=== PATIENT | female | born 1945 | race Caucasian/White ===

== ENCOUNTER → 2016-12-16 | Outpatient (CLI) | payer MEDICARE ==
[~2016-12-16] MED LIST: /ESOM40CA OR; /WARF25TA OR; ACET65TA OR; ASPI81TA83 OR; AZOR PO; BUSP10TA PO; BUSPIRONE PO; COUM2.5T17 PO; CRES20TA PO; FOLI1TAB4 PO; GABA600T PO; GABAPOW41 PO; GLIM4TAB PO; GLIMEPIRIDE PO; LOPR1TAB6 PO; MELO7.5T7 PO; METFORMIN PO; METOPROLOL PO; NEXI20CA PO; NICO21DI4 TD; OXYBUTIN PO; PERC5TAB12 PO; PERC5TAB8 OR; PRIM250T8 PO; PRIMPOW10 PO; VITA200015 PO; VITAMIN B 12 PO; VITAMIN D PO; VYTORIN PO; [UNRECOGNIZED DRUG - OTHER] PO; myrbetriq OR
--- NOTE | 2016-12-16 12:28 | REP ---
TRIPLE-PHASE BONE SCAN OF THE KNEES: Following the intravenous administration of 19.9 millicuries technetium 99, MDP, the patient's knees are imaged in the flow phase in the anterior and posterior showing symmetrical blood flow. Immediate blood pole and 2-hours delayed images are performed in the knees in the anterior and both lateral projections. The photopenic area seen in the right knee joints, compatible with metallic prosthesis. There is some minimal increased blood pooling along the margins of the prosthesis. Delayed images snow arthritic uptake at the left patellofemoral joint. There is mild increased delayed activity in the right patella, in the distal end of the right femur and in the proximal end of the right tibia adjacent to the metallic prosthesis. IMPRESSION: Very mild increased blood pooling and very mild increased delayed activity in the distal end of the femur and proximal end of the tibia adjacent to the right knee prosthesis. Signed by David Olivera MD 12/16/2016 04:32 P
== END ==
LOC: M RAD 09:37
PROVIDERS: ATTEND Physician Assistant Surgical
DX: M25.561 Pain in right knee (principal)
CPT/HCPCS: 78315; A9503

== ENCOUNTER → 2017-09-12 | Outpatient (CLI) | payer MEDICARE | LOC: M RAD 12:06 | DX: M51.36 Other intervertebral disc degeneration, lumbar region (principal); M51.26 Other intervertebral disc displacement, lumbar region; M48.061 Spinal stenosis, lumbar region without neurogenic claudication | CPT/HCPCS: 72148 ==

== ENCOUNTER → 2018-08-03 | Outpatient (CLI) | payer MEDICARE ==
[~2018-08-03] MED LIST changes: -/ESOM40CA OR; -/WARF25TA OR; +COUM1TAB18 OR; -CRES20TA PO; +CRES20TA2 PO; +FOLI1TAB11 PO; -FOLI1TAB4 PO; -GABA600T PO; +GABA600T4 PO; +NEXI1CAP3 OR
--- NOTE | 2018-08-03 12:17 | REP ---
DUPLEX CAROTID SONOGRAPHY: HISTORY: Occlusion and stenosis bilateral carotid arteries. FINDINGS: Antegrade flow was observed in both vertebral arteries. RIGHT CAROTID: The right common carotid artery shows mild soft plaquing and intimal thickening. There is moderate to extensive plaquing in the proximal ICA and bulb on the right side on two-dimensional scanning. Stenotic flow velocities are observed in the ICA. VELOCITY CHART RIGHT CAROTID: Right CCA PSV 43 cm/s Right ICA PSV 337 EDV 86 Right ECA/PSV 94 Right ICA/CCA ratio, elevated 8.9 IMPRESSION: Severe, 80-99% category narrowing in the right ICA by Doppler velocity criteria. LEFT CAROTID: The left common carotid artery shows mild soft plaquing and diffuse intimal thickening. There is moderate mixed plaquing in the bulb and proximal ICA on two-dimensional scanning. VELOCITY CHART LEFT CAROTID: Left CCA PSV 49 cm/s Left ICA PSV 110 EDV 24 LEFT ECA/PSV 82 Left ICA/CCA ratio 2.4 IMPRESSION: 16-49% category narrowing in the left ICA by Doppler velocity criteria. Electronically Signed by Denilson Harris MD 08/03/2018 03:44 P
== END ==
LOC: M RAD 09:22
PROVIDERS: ATTEND Surgery Vascular Surgery
DX: I65.23 Occlusion and stenosis of bilateral carotid arteries (principal)

== ENCOUNTER 2018-08-31 09:18 | Inpatient (IN) | payer MEDICARE ==
[2018-08-31] VITALS (10 sets, daily range): BP systolic 120–177; BP diastolic 37–86
[~2018-08-31] VITALS: Ht 168.9 cm; Wt 95.3 kg
[~2018-08-31 09:18] MED LIST changes: +AMLO5TAB6 PO; +DULO1CAP4 PO; +ESTR1MIS PV; +HYDR12CA PO; +JANU100T PO; +LIDO5DIS41 TD; +MELO15TA28 PO; +MEMA1TAB2 PO; +MYRB50TA PO; +OLME40TA PO; +PEG1POW PO; +ROSU20TA5 PO
[2018-08-31] MEDS ORDERED: LIDOCAINE 2% INJ 100 MG/5 ML SDV (FOR ANES.) As Ordered ONE (10:15)
[2018-08-31] MEDS ORDERED: ROCURONIUM BROMIDE 50 MG/5 ML VIAL As Ordered ONE ×2 (10:15→14:04)
[2018-08-31] MEDS ORDERED: dexameTHASONE 4 MG/ML 1ML VIAL (J1100) As Ordered ONE (10:17)
[2018-08-31] MEDS ORDERED: ONDANSETRON 4MG/2ML VIAL (J2405) As Ordered ONE (10:17)
[2018-08-31] MEDS ORDERED: PHENYLEPHRINE INJ 10MG/ML VIAL (J2370) As Ordered ONE (10:17)
[2018-08-31] MEDS ORDERED: MIDAZOLAM INJ 2 MG/2 ML VIAL (J2250) As Ordered ONE (10:20)
[2018-08-31] MEDS ORDERED: fentaNYL 250 MCG/5 ML INJECTION (J3010) As Ordered ONE (10:20)
[2018-08-31] MEDS ORDERED: HEPARIN SOD (PORCINE) 5000 UNITS/ML VIAL As Ordered ONE ×3 (10:23→13:09)
[2018-08-31] MEDS ORDERED: HumaLOG INSULIN (NovoLOG) PER UNIT SC ONE (11:30)
[2018-08-31] MEDS ORDERED: THROMBIN SOLN 20,000 UNITS KIT As Ordered ONE (12:35)
[2018-08-31] MEDS ORDERED: LIDOCAINE 1% SDV INJ 30 ML VIAL As Ordered ONE (12:35)
[2018-08-31] MEDS ORDERED: GLYCOPYRROLATE INJ 0.2 MG/ML 2 ML VIAL As Ordered ONE (13:36)
[2018-08-31] MEDS ORDERED: PHENYLephrine HCL 500 MCG/5 ML (100MCG/ML) SYRINGE (J2370) As Ordered ONE (13:37)
[2018-08-31] MEDS ORDERED: ePHEDrine SULFATE 25 MG/5 ML(5MG/ML) SYRINGE As Ordered ONE (13:37)
[2018-08-31] MEDS ORDERED: SUGAMMADEX SODIUM 500 MG/5 ML VIAL (BRIDION) As Ordered ONE (13:56)
[2018-08-31] MEDS ORDERED: ACETAMINOPHEN 1000MG 100ML IV BTL (OFIRMEV) (J0131 PER 10MG) As Ordered ONE (13:56)
[2018-08-31] MEDS ORDERED: LABETALOL HCL 100 MG/20 ML VIAL As Ordered ONE (14:08)
[2018-08-31] MEDS ORDERED: DESFLURANE 240 ML INHALANT As Ordered ONE (16:03)
[2018-08-31] MEDS ORDERED: oxyCODONE 5MG TAB PO PRN (17:00)
[2018-08-31] MEDS ORDERED: HYDROMORPHONE HCL 0.5 MG/ 0.5 ML SYRINGE (J1170 PER 1) IV PRN (17:00)
[2018-08-31] MEDS ORDERED: ONDANSETRON 4MG/2ML VIAL (J2405) IV PRN (17:00)
[2018-08-31] MEDS ORDERED: LR 1,000 ML IV SCH (17:00)
[2018-08-31] MEDS ORDERED: fentaNYL 100 MCG/2 ML INJECTION (J3010) IV PRN (17:00)
--- NOTE | 2018-08-31 17:09 | ROOPDOC ---
[facility] Report Of Operation Report of Operation DATE OF PROCEDURE: 08/31/18 PREPROCEDURE DIAGNOSES: Right carotid stenosis, asymptomatic. POSTPROCEDURE DIAGNOSES: Same. PROCEDURE: Right carotid endarterectomy with plication of right internal carotid artery. SURGEON: Twyla Elmore MD ANESTHESIA: Gen. anesthesia and local INDICATION FOR PROCEDURE: Ms. rodríguez is a 73-year-old patient with asymptomatic severe right mid internal carotid artery stenosis. After reviewing the imaging with the patient and her , the risks benefits and alternatives to a right carotid endarterectomy were explained to the patient and she was agreeable to proceed. She was extensively counseled in clinic and again preoperatively today. All questions were answered. Informed consent was obtained. PROCEDURE: The patient was brought to the operating room in stable condition. General anesthesia and antibiotics were administered without complication. Her right neck and chest were prepped and draped in sterile fashion. A timeout was performed. An oblique incision was made on the right neck over the anterior border of the sternocleidomastoid. This was carried down through the subcutaneous tissue and platysma with Bovie cautery. Dissection continued along the anterior border of the sternocleidomastoid down to the jugular vein. The facial vein was identified and carefully skeletonized and suture ligated and divided. We continued her dissection down to the external carotid artery which was skeletonized proximally and distally within the incision. Vessel loops were placed around the superior thyroid and external carotid arteries. We continued her dissection onto the common carotid artery which was skeletonized proximally and distally within the incision. A vessel loop was placed as well. 5000 units of heparin was given by anesthesia that allowed to circulate. An additional 1000 units of heparin was given later in the case after an hour had passed. We continued her dissection on the internal carotid artery and found there to be a great deal of heavy calcified near occlusive plaque just distal to the origin and then for an additional 6 cm throughout a very tortuous segment. It took a moment to dissected out the internal carotid artery to place distal to the plaque. Care was taken to preserve the hypoglossal nerve and the ophthalmic artery. It did require a fair bit of retraction on both to expose the distal portion of the artery extracranially. A vessel loop was placed on the internal carotid artery. The vessel loops were secured and the systolic blood pressure was maintained between 140 and 160 mmHg. Initially, I consider doing an eversion endarterectomy, but I was concerned that the artery appeared very thin, in the plaque may be too adherent to the arterial wall to provide enough healthy artery to advance and use as a patch over the carotid bulb. Therefore, I decided the best option would likely be to remove as much plaque as we could through traditional endarterectomy and plicate the artery to eliminate the redundancy of the ICA and eliminate areas of the artery that were deemed to thin after plaque removal. An arteriotomy was made on the common carotid artery with an 11 blade and then carried distally onto the internal carotid artery with a pot scissor. This was a difficult arteriotomy due to heavy calcified plaque well adherent to the arterial wall. Eventually we were able to open the entire area. With great effort we were able to open to an area distal to the plaque. Unfortunately, the plaque was very granular and friable and I did not feel we could place the shunt without possibly disrupting some of the plaque or proximally, thus a quick internal carotid endarterectomy was performed to eliminate the bulk of the plaque. The artery was in fact extremely friable and fragile where the plaque was the heaviest in the midportion. It was extremely difficult to place the shunt and secure a vessel loop due to the very distal nature of our arteriotomy, but we were able to do so after some effort. Once the shunt was placed, we confirmed flow through the shunt with a Doppler. We then continued her endarterectomy. The plaque elevator was used to elevate the plaque at the common carotid artery and the bulb in the right ankle was placed underneath the plaque and it was transected with a pot scissors. We then felt that the plaque out through the bulb and everted the external carotid artery to remove as much plaque from the origin is possible. We then feathered about the plaque through the proximal internal carotid artery. The proximal internal carotid artery appeared relatively healthy. The midportion where the heaviest tortuosity and plaque were located did not appear suitable. The distalmost portion of arteriotomy also appeared suitable. Therefore we plicated the artery bringing the proximal and distal healthy and together with 6-0 Prolene suture. A suture was placed at both sides of the plication and then is separate 6-0 suture was used and a mattress fashion to finish the plication centrally. This remove the tortuosity and gave us the best portions of the artery in preparation for sewing on the patch. Care was taken to remove any further loose and Areli debris. Copious irrigation was performed with heparinized saline. We did note there was a little bit of intermittent calcification in the internal carotid artery distal to arteriotomy, but it did not appear significant and there was no trouble placing the shunt, so this will likely be hemodynamically insignificant. We anastomosed a bovine carotid patch with running 5-0 Prolene suture. Before the final sutures were placed, the shunt was removed first from the internal carotid artery with good back bleeding, then from that common carotid artery which was adequately flushed. We also flushed the external carotid artery and superior thy roid artery and re-irrigated with heparinized saline. Following this, the final sutures were placed in the patch. We then restored flow to the external carotid artery and superior thyroid artery, the common carotid artery, and lastly after 10 beats of the heart the internal carotid artery. We copiously irrigated with normal saline, and Bovie cautery, Surgicel and gentle pressure were used for hemostasis. A 10 mm ANKUR drain was placed and secured at the right neck with a nylon suture. The incision was irrigated again with saline, and the platysmal layer was reapproximated with a running Vicryl suture. The dermal layer was approximated with interrupted dermal Vicryl sutures. The skin was closed with a running subcuticular Monocryl suture. Mastisol and Steri-Strips were used to dress the incision. A drain sponge was placed around the drain and the drain was placed to bulb suction. Our first sponge instrument and needle count was correct, but the last count was missing 1 6-0 Prolene BV-1 needle. The help desk technician feels it fell off of her tray while she was getting another suture ready. An extensive attempt to find the needle was performed by the circulating nurse and the help desk technician, but they were not able to find it. Since our initial count was correct and the needle was lost after we had started closing, and since this needle is smaller than 10mm and could not be seen on x-ray, an x-ray was not deemed unnecessary per hospital policy. The patient was allowed to awaken from anesthesia and before we left the operating room, she was able to open her eyes, say her name, move all 4 extremities equally, and follow commands. She was taken to PACU in stable condition. ESTIMATED BLOOD LOSS: Approximately 200 mL. COMPLICATIONS: None. DRAINS: Right neck ANKUR. SPECIMENS: Plaque right carotid artery sent for pathology. TWYLA ELMORE MD Aug 31, 2018 17:09
[2018-08-31] MEDS ORDERED: CHLORASEPTIC SPRAY MT PRN (17:15)
[2018-08-31] MEDS ORDERED: GLUCAGON FOR INJ 1 MG VIAL (J1610) SC PRN (18:45)
[2018-08-31] MEDS ORDERED: SLF 3 ML SYR IV PRN (18:45)
[2018-08-31] MEDS ORDERED: DEXTROSE 50% 50 ML SYRINGE IV PRN (18:45)
[2018-08-31] MEDS ORDERED: GLUCOSE 4 GM CHEW TABLET PO PRN (18:45)
[2018-08-31] MEDS: HumaLOG INSULIN (NovoLOG) PER UNIT SC SCH (18:48)
[2018-08-31] MEDS: PERCOCET 5MG/325MG TAB PO PRN (18:49)
[2018-08-31] MEDS ORDERED: OLME1TAB15 PO ×2 (19:42→20:14)
[2018-08-31] MEDS ORDERED: MIRALAX *UNIT DOSE* 17GM PACKET PO PRN (19:45)
[2018-08-31] MEDS ORDERED: BUSP5TAB81 PO (20:14)
[2018-08-31] MEDS ORDERED: NS 500 ML IV SCH (20:42)
[2018-08-31] MEDS: GABAPENTIN 300 MG CAP PO SCH (20:57)
[2018-08-31] MEDS: PRIMIDONE 250 MG TAB PO SCH (20:57)
[2018-08-31] MEDS: busPIRone 5 MG TAB PO SCH (20:57)
[2018-08-31] MEDS: MEMANTINE 5MG TABLET (NAMENDA) PO SCH (20:57)
[2018-08-31] MEDS: ACETAMINOPHEN TAB 650MG DOSE (2X325MG) PO PRN (20:58)
[2018-08-31] MEDS ORDERED: METOPROLOL TART 50 MG TAB PO SCH (21:00)
[2018-08-31] MEDS: **NOTE PATIENT COMMENT** MISC XX SCH (21:00)
--- NOTE | 2018-08-31 21:01 | CR.PDOC ---
General Date of Consultation: Aug 31, 2018 Consultation REASON FOR CONSULTATION/CHIEF COMPLAINT: post op management of comorbidities HISTORY OF PRESENT ILLNESS: 73f with hx of DM, HTN, HLD, neuropathy, presented for elective carotid endarterectomy for severe asymptomatic carotid stenosis. Pt reports she has felt well except for neck pain the past few months which prompted the carotid US. Pt had the procedure today with no complications except transient hypotension resolving spontaneously. Now feels well except some incisional site pain. ALLERGIES: Please see below. HOME MEDICATIONS: Please see below. PAST MEDICAL HISTORY: 1. diabetes. 2. htn 3. HLD PAST SURGICAL HISTORY: 1.shoulder surgery 2.hysterectomy 3. carpal tunnel FAMILY HISTORY: noncontributory SOCIAL HISTORY: Tobacco use:former ETOH: denies Illicit drug use: denies REVIEW OF SYSTEMS: A full ROS was performed and negative except as documented in HPI PHYSICAL EXAMINATION: VITAL SIGNS: Please see below. GENERAL APPEARANCE: calm, no apparent distress HEENT: Normocephalic, atraumatic, perrl, eomi RESPIRATORY: unlabored, cta bilaterally with good air movement CARDIOVASCULAR: RRR, S1S2, no mrg ABDOMEN: soft nontender, nondistended EXTREMITIES: good rom, no edema NEUROLOGICAL: no focal deficits PSYCHIATRIC: A+Ox3, nl mood and affect LABORATORY DATA: Please see below. ASSESSMENT/PLAN: 73f post op carotid endarterectomy htn sbp goal 90-140 continue home regimen of benicar, hctz, norvasc, and metoprolol HLD continue crestor DM diabetic diet fingersticks sliding scale hold januvia and glimepiride post op pain per vascular Vital Signs/I&O Vital Signs Date Time Temp Pulse Resp B/P (MAP) Pulse Ox O2 Delivery O2 Flow Rate FiO2 08/31/18 19:19 21 2.0 08/31/18 18:49 98 08/31/18 18:45 69 137/49 (78) 08/31/18 18:10 98.0 Laboratory Data Labs 24H Laboratory Tests 2 08/31/18 10:26: Bedside Glucose (Misc Panel) 251H 08/31/18 12:12: Bedside Glucose (Misc Panel) 195H 08/31/18 18:45: Bedside Glucose (Misc Panel) 199H Allergies Coded Allergies: ampicillin (Verified Adverse Reaction, Intermediate, diarrhea, 08/18/18) TAPE (Verified Adverse Reaction, Mild, BLISTERS, 08/18/18) Home Medications Scheduled Amlodipine Besylate (Amlodipine Besylate) 5 Mg Tablet, 5 MG PO DAILY, (Reported) Buspirone HCl (Buspirone HCl) 5 Mg Tablet, 5 MG PO TID, (Reported) Cholecalciferol (Vitamin D3) (Vitamin D3) 2,000 Unit Tab, 2,000 UNIT PO DAILY, (Reported) Duloxetine Hcl (Duloxetine HCl) 20 Mg Capsule.dr, 20 MG PO DAILY, (Reported) AT 1200 Esomeprazole Magnesium (Nexium) 20 Mg Cap, 40 MG PO QHS, (Reported) Estradiol (Estring) 2 Mg Vag.ring, 2 MG PV Q3M, (Reported) Gabapentin (Gabapentin) 600 Mg Tab, 600 MG PO TID, (Reported) Glimepiride (Glimepiride) 4 Mg Tab, 4 MG PO BID, (Reported) Hydrochlorothiazide (Hydrochlorothiazide) 12.5 Mg Capsule, 12.5 MG PO DAILY, (Reported) Lidocaine (Lidoderm) 5% Adh..patch, 1 PATCH TD DAILY, (Reported) APPLIES TO LOWER BACK Meloxicam (Meloxicam) 15 Mg Tablet, 7.5 MG PO DAILY, (Reported) Memantine HCl (Memantine HCl) 10 Mg Tablet, 10 MG PO BID, (Reported) Metoprolol Tartrate (Lopressor) 50 Mg Tab, 50 MG PO DAILY, (Reported) Mirabegron (Myrbetriq) 50 Mg Tab.er.24h, 50 MG PO DAILY, (Reported) Olmesartan/Hydrochlorothiazide (Olmesartan-Hctz 40-25 mg Tab) 1 Each Tablet, 1 TAB PO DAILY, (Reported) Primidone (Primidone) 250 Mg Tablet, 250 MG PO BID, (Reported) Rosuvastatin Calcium (Rosuvastatin Calcium) 20 Mg Tablet, 20 MG PO Q2D, (Reported) IN THE EVENING Sitagliptin Phosphate (Januvia) 100 Mg Tablet, 100 MG PO DAILY, (Reported) AT 1200 Scheduled PRN Polyethylene Glycol 3350 (Polyethylene Glycol 3350) 17 Gm Powd.pack, 17 GM PO DAILY PRN for CONSTIPATION, (Reported) ÁLVARO HOPKINS MD Aug 31, 2018 21:01
[2018-08-31] MEDS ORDERED: **hydrALAZINE HCL** 25 MG TAB PO ONE (22:15)
[2018-08-31] MEDS: SLF 3 ML SYR IV SCH (22:29)
[2018-09-01] VITALS (21 sets, daily range): BP systolic 102–235; BP diastolic 41–76
[2018-09-01] MEDS: HumaLOG INSULIN (NovoLOG) PER UNIT SC SCH ×5 (01:32→20:28)
[2018-09-01] MEDS: hydrALAZINE INJ 20 MG/ML VIAL IV PRN ×4 (02:18→16:15)
[2018-09-01] MEDS: PERCOCET 5MG/325MG TAB PO PRN ×2 (02:55→16:17)
[2018-09-01] MEDS: SLF 3 ML SYR IV SCH ×3 (06:23→21:36)
[2018-09-01 06:34] LABS: BASO % 0.6 % (0.0-1.0); EOS # 0.1 10^3/uL (0.0-0.50); EOS % 1.1 % (0.0-3.0); HEMATOCRIT 32.7 % (36.0-47.0); HEMOGLOBIN 10.7 g/dl (12.0-15.5); LYMPH # 2.1 10^3/uL (1.5-4.5); LYMPH % 29.6 % (24.0-44.0); MEAN CORPUSCULAR HEMOGLOBIN 29.3 pg (27.0-33.0); MEAN CORPUSCULAR HGB CONC 32.7 g/dl (32.0-36.5); MEAN CORPUSCULAR VOLUME 89.6 fl (80.0-96.0); MONO # 0.5 10^3/uL (0.0-0.8); MONO % 7.1 % (0.0-5.0); NEUTROPHILS # 4.3 10^3/uL (1.8-7.7); PLATELET COUNT, AUTOMATED 121 10^3/uL (150-450); RED BLOOD COUNT 3.65 10^6/uL (4.00-5.40); WHITE BLOOD COUNT 7.1 10^3/uL (4.0-10.0)
[2018-09-01 07:10] LABS: ALBUMIN 3.3 GM/DL (3.2-5.2); ALT/SGPT 32 U/L (12-78); BILIRUBIN,TOTAL 0.2 MG/DL (0.2-1.0); BLOOD UREA NITROGEN 9 MG/DL (7-18); CALCIUM LEVEL 8.8 MG/DL (8.8-10.2); CARBON DIOXIDE LEVEL 32 MEQ/L (21-32); CHLORIDE LEVEL 108 MEQ/L (98-107); CREATININE FOR GFR 0.66 MG/DL (0.55-1.30); GLOMERULAR FILTRATION RATE > 60.0 (>39); GLUCOSE, FASTING 210 MG/DL (70-100); POTASSIUM SERUM 3.6 MEQ/L (3.5-5.1); SODIUM LEVEL 132 MEQ/L (136-145); TOTAL PROTEIN 6.5 GM/DL (6.4-8.2)
[2018-09-01] MEDS: ACETAMINOPHEN TAB 650MG DOSE (2X325MG) PO PRN ×2 (07:55→15:18)
[2018-09-01] MEDS: PANTOPRAZOLE 40MG TAB (PROTONIX) PO SCH (07:55)
[2018-09-01] MEDS: LIDOCAINE 5% (LIDODERM) PATCH TD SCH (07:56)
[2018-09-01] MEDS: VITAMIN D 1,000 INTERNATIONAL UNITS TABLET PO SCH (07:57)
[2018-09-01] MEDS: OLMESARTAN MEDOXOMIL 20 MG TAB (BENICAR) PO SCH (07:57)
[2018-09-01] MEDS: GABAPENTIN 300 MG CAP PO SCH ×3 (07:58→21:36)
[2018-09-01] MEDS: MELOXICAM (MOBIC) 7.5 MG TAB PO SCH (07:58)
[2018-09-01] MEDS: busPIRone 5 MG TAB PO SCH ×3 (07:58→21:35)
[2018-09-01] MEDS: DULoxetine 20 MG CAP (CYMBALTA) PO SCH (07:58)
[2018-09-01] MEDS: MEMANTINE 5MG TABLET (NAMENDA) PO SCH ×2 (07:58→21:36)
[2018-09-01] MEDS: METOPROLOL TART 50 MG TAB PO SCH (07:59)
[2018-09-01] MEDS: PRIMIDONE 250 MG TAB PO SCH ×2 (08:00→21:35)
--- NOTE | 2018-09-01 08:07 | IPNPDOC ---
Text Note Date of Service The patient was seen on 09/01/18. NOTE Subjective: Patient seen and examined at bedside. No new medical complaints this morning. Complains of some right neck pain. Objective: VITAL SIGNS: Please see below. GENERAL: lying comfortably in bed, NAD HEENT: Normocephalic, atraumatic, perrl, eomi NECK: right neck bandages in place RESPIRATORY: unlabored, cta bilaterally with good air movement CARDIOVASCULAR: RRR, S1S2, systolic murmur ABDOMEN: soft NT, ND, +BS EXTREMITIES: no edema NEUROLOGICAL: no gross focal deficits , AAOx3 ASSESSMENT/PLAN: 73f POD #1 right CEA, consulted for management medical co-morbidities #HTN - sbp goal 90-140 - continue home regimen of benicar, hctz, norvasc, and metoprolol - hydralazine PRN - further direction as per primary team #HLD continue crestor #DM - diabetic diet - ISS - hold januvia and glimepiride #post op pain - as per primary team VS,Dalila, I+O VS, Juanitae, I+O Laboratory Tests 09/01/18 06:20 Red Blood Count 3.65 L, Mean Corpuscular Volume 89.6, Mean Corpuscular Hemoglobin 29.3, Mean Corpuscular Hemoglobin Concent 32.7, Red Cell Distribution Width 13.7, Neutrophils (%) (Auto) 61.0, Lymphocytes (%) (Auto) 29.6, Monocytes (%) (Auto) 7.1 H, Eosinophils (%) (Auto) 1.1, Basophils (%) (Auto) 0.6, Neutrophils # (Auto) 4.3, Lymphocytes # (Auto) 2.1, Monocytes # (Auto) 0.5, Eosinophils # (Auto) 0.1, Basophils # (Auto) 0.0, Calcium Level 8.8, Aspartate Amino Transf (AST/SGOT) 23, Alanine Aminotransferase (ALT/SGPT) 32, Alkaline Phosphatase 73, Total Bilirubin 0.2, Total Protein 6.5, Albumin 3.3 Vital Signs Date Time Temp Pulse Resp B/P (MAP) Pulse Ox O2 Delivery O2 Flow Rate FiO2 09/01/18 07:57 144/66 09/01/18 06:55 68 92 09/01/18 04:00 98.1 20 09/01/18 03:00 1.0 I&O- Last 24 Hours up to 6 AM 09/01/18 05:59 Intake Total 2040 ml Output Total 1545 ml Balance 495 ml CHLOE MONTANO MD Sep 01, 2018 08:07
--- NOTE | 2018-09-01 08:13 | IPNPDOC ---
Date Seen The patient was seen on 09/01/18. Progress Note Patient seen and examined postoperative day one status post carotid endarterectomy in the right. She's doing well overnight. She's been out of bed with assist. She has had some hypertension overnight. Her noninvasive blood pressure is not correlating with arterial line very well. Both are high however and she required a dose of hydralazine this morning and I've asked the nurses to give her her morning blood pressure pills a bit early to see if this will help. We will continue our arterial line until her hypertension is controlled. She is swallowing without difficulty. Her pain is minimal. On exam, her right neck incision is clean dry and intact with Steri-Strips. Drain output is minimal and her ANKUR drain was removed and dressed with Steri- Strips and dry gauze. She is alert and oriented 3. Cranial nerves are grossly intact but she does have a mild deviation of her tongue to the right due to a very distal dissection of her internal carotid artery and significant distal plaque. We expect this and it should resolve over the next month. He is not affecting her mastication or speech. Moving all extremities equally, and sensation, motor, and strength all appear to be equal in all 4 extremities. Plan: The patient will require a new prescription for Plavix at discharge for 30 days. Out of bed with assist and ambulate. Monitor hypertension and continue arterial line until hypertension is resolved. Regular diet. Discharge instructions: No driving for 1 week. Okay to shower. If possible, use a baby shampoo or mild shampoo until incision is completely healed. Avoid heat styling until incision completely healed. Try to leave Steri-Strips intact for 1 week. Okay to remove gauze dressing from drain site tomorrow. No strenuous exercise or heavy lifting for 1 week. Okay to ambulate and light activity as tolerated. VS, I&O, 24H, Fishbone Vital Signs/I&O Vital Signs Date Time Temp Pulse Resp B/P (MAP) Pulse Ox O2 Delivery O2 Flow Rate FiO2 09/01/18 07:57 144/66 09/01/18 06:55 68 92 09/01/18 04:00 98.1 20 09/01/18 03:00 1.0 I&O- Last 24 Hours up to 6 AM 09/01/18 06:00 Intake Total 2280 ml Output Total 1960 ml Balance 320 ml Laboratory Data 24H LABS Laboratory Tests 2 08/31/18 10:26: Bedside Glucose (Misc Panel) 251H 08/31/18 12:12: Bedside Glucose (Misc Panel) 195H 08/31/18 18:45: Bedside Glucose (Misc Panel) 199H 08/31/18 22:28: Bedside Glucose (Misc Panel) 254H 09/01/18 06:20: Immature Granulocyte % (Auto) 0.6, White Blood Count 7.1, Red Blood Count 3.65L, Hemoglobin 10.7L, Hematocrit 32.7L, Mean Corpuscular Volume 89.6, Mean Corpuscular Hemoglobin 29.3, Mean Corpuscular Hemoglobin Concent 32.7, Red Cell Distribution Width 13.7, Platelet Count 121L, Neutrophils (%) (Auto) 61.0, Lymphocytes (%) (Auto) 29.6, Monocytes (%) (Auto) 7.1H, Eosinophils (%) (Auto) 1.1, Basophils (%) (Auto) 0.6, Neutrophils # (Auto) 4.3, Lymphocytes # (Auto) 2.1, Monocytes # (Auto) 0.5, Eosinophils # (Auto) 0.1, Basophils # (Auto) 0.0, Nucleated Red Blood Cells % (auto) 0.0, Anion Gap -8L, Glomerular Filtration Rate > 60.0, Blood Urea Nitrogen 9, Creatinine 0.66, Sodium Level 132L, Potassium Level 3.6, Chloride Level 108H, Carbon Dioxide Level 32, Calcium Level 8.8, Aspartate Amino Transf (AST/SGOT) 23, Alanine Aminotransferase (ALT/SGPT) 32, Alkaline Phosphatase 73, Total Bilirubin 0.2, Total Protein 6.5, Albumin 3.3, Albumin/Globulin Ratio 1.03 CBC/BMP Laboratory Tests 09/01/18 06:20 Red Blood Count 3.65 L, Mean Corpuscular Volume 89.6, Mean Corpuscular Hemoglobin 29.3, Mean Corpuscular Hemoglobin Concent 32.7, Red Cell Distribution Width 13.7, Neutrophils (%) (Auto) 61.0, Lymphocytes (%) (Auto) 29.6, Monocytes (%) (Auto) 7.1 H, Eosinophils (%) (Auto) 1.1, Basophils (%) (Auto) 0.6, Neutrophils # (Auto) 4.3, Lymphocytes # (Auto) 2.1, Monocytes # (Auto) 0.5, Eosinophils # (Auto) 0.1, Basophils # (Auto) 0.0, Calcium Level 8.8, Aspartate Amino Transf (AST/SGOT) 23, Alanine Aminotransferase (ALT/SGPT) 32, Alkaline Phosphatase 73, Total Bilirubin 0.2, Total Protein 6.5, Albumin 3.3 TWYLA METZ MD Sep 01, 2018 08:13
[2018-09-01 08:30] LABS: MAGNESIUM LEVEL 1.6 MG/DL (1.8-2.4)
[2018-09-01] MEDS ORDERED: amLODIPine 5 MG TAB PO SCH (09:00)
[2018-09-01] MEDS ORDERED: hydroCHLOROthiazide 12.5 MG CAPSULE PO SCH (09:00)
[2018-09-01] MEDS ORDERED: METOPROLOL TART 50 MG TAB PO SCH (09:00)
[2018-09-01] MEDS ORDERED: MAG SULF 1GM/100ML (MAG RUN) 1 GM in APPROPRIATE DILUENT 1 EA IV ONE (11:00)
[2018-09-01] MEDS ORDERED: hydrALAZINE INJ 20 MG/ML VIAL IV ONE (15:00)
--- NOTE | 2018-09-01 16:47 | REP ---
Chest x-ray: Sitting portable AP view. History: Fever. Comparison study: August 25, 2015. Findings: EKG monitoring electrodes overlie the chest. The lungs are symmetrically aerated and free of infiltrate. Pleural angles are sharp. Heart is not enlarged. The aorta is calcific. There are mild degenerative changes in the shoulders. Impression: No acute disease. No infiltrate seen. Electronically Signed by Denilson Harris MD 09/01/2018 04:39 P
[2018-09-01] MEDS ORDERED: ROSUVASTATIN 10 MG TAB (CRESTOR) PO SCH (21:00)
[2018-09-01] MEDS: **NOTE PATIENT COMMENT** MISC XX SCH (21:36)
[2018-09-02] VITALS (11 sets, daily range): BP systolic 108–179; BP diastolic 51–77
[2018-09-02 04:56] LABS: BASO # 0.1 10^3/uL (0.0-0.2); BASO % 0.7 % (0.0-1.0); EOS # 0.1 10^3/uL (0.0-0.50); EOS % 0.9 % (0.0-3.0); HEMATOCRIT 31.6 % (36.0-47.0); HEMOGLOBIN 10.2 g/dl (12.0-15.5); LYMPH # 3.3 10^3/uL (1.5-4.5); LYMPH % 37.9 % (24.0-44.0); MEAN CORPUSCULAR HEMOGLOBIN 29.2 pg (27.0-33.0); MEAN CORPUSCULAR HGB CONC 32.3 g/dl (32.0-36.5); MEAN CORPUSCULAR VOLUME 90.5 fl (80.0-96.0); MONO # 0.6 10^3/uL (0.0-0.8); MONO % 6.7 % (0.0-5.0); NEUTROPHILS # 4.6 10^3/uL (1.8-7.7); NEUTROPHILS % 53.5 % (36.0-66.0); PLATELET COUNT, AUTOMATED 141 10^3/uL (150-450); RED BLOOD COUNT 3.49 10^6/uL (4.00-5.40); WHITE BLOOD COUNT 8.6 10^3/uL (4.0-10.0)
[2018-09-02] MEDS: SLF 3 ML SYR IV SCH (05:08)
[2018-09-02 05:09] LABS: ALBUMIN 3.2 GM/DL (3.2-5.2); ALT/SGPT 25 U/L (12-78); BILIRUBIN,TOTAL 0.3 MG/DL (0.2-1.0); BLOOD UREA NITROGEN 15 MG/DL (7-18); CALCIUM LEVEL 8.6 MG/DL (8.8-10.2); CARBON DIOXIDE LEVEL 33 MEQ/L (21-32); CHLORIDE LEVEL 100 MEQ/L (98-107); CREATININE FOR GFR 0.71 MG/DL (0.55-1.30); GLOMERULAR FILTRATION RATE > 60.0 (>39); GLUCOSE, FASTING 190 MG/DL (70-100); POTASSIUM SERUM 3.7 MEQ/L (3.5-5.1); SODIUM LEVEL 138 MEQ/L (136-145); TOTAL PROTEIN 6.5 GM/DL (6.4-8.2)
[2018-09-02] MEDS: HumaLOG INSULIN (NovoLOG) PER UNIT SC SCH (08:07)
[2018-09-02] MEDS ORDERED: hydroCHLOROthiazide 25 MG TAB PO SCH (09:00)
[2018-09-02] MEDS ORDERED: amLODIPine 10 MG TAB PO SCH (09:00)
[2018-09-02] MEDS: MEMANTINE 5MG TABLET (NAMENDA) PO SCH (09:06)
[2018-09-02] MEDS: DULoxetine 20 MG CAP (CYMBALTA) PO SCH (09:06)
[2018-09-02] MEDS: busPIRone 5 MG TAB PO SCH (09:07)
[2018-09-02] MEDS: OLMESARTAN MEDOXOMIL 20 MG TAB (BENICAR) PO SCH (09:07)
[2018-09-02] MEDS: PANTOPRAZOLE 40MG TAB (PROTONIX) PO SCH (09:08)
[2018-09-02] MEDS: VITAMIN D 1,000 INTERNATIONAL UNITS TABLET PO SCH (09:08)
[2018-09-02] MEDS: MELOXICAM (MOBIC) 7.5 MG TAB PO SCH (09:08)
[2018-09-02] MEDS: PRIMIDONE 250 MG TAB PO SCH (09:08)
[2018-09-02] MEDS: GABAPENTIN 300 MG CAP PO SCH (09:08)
[2018-09-02] MEDS: METOPROLOL TART 50 MG TAB PO SCH (09:09)
[2018-09-02] MEDS: LIDOCAINE 5% (LIDODERM) PATCH TD SCH (09:09)
--- NOTE | 2018-09-02 09:22 | IPNPDOC ---
Date Seen The patient was seen on 09/02/18. Progress Note Patient seen and examined postoperative day 2 status post right carotid endarterectomy. She's doing well. She's been out of bed without difficulty. her hypertension is controlled with medication. She is swallowing and eating without difficulty. Her pain is minimal. On exam, her right neck incision is clean dry and intact with Steri-Strips. She is alert and oriented 3. Cranial nerves are grossly intact but she does have a mild deviation of her tongue to the right due to a very distal dissection of her internal carotid artery and significant distal plaque. We expect this and it should resolve over the next month. He is not affecting her mastication or speech. Moving all extremities equally, and sensation, motor, and strength all appear to be equal in all 4 extremities. Plan: The patient will require a new prescription for Plavix at discharge for 30 days. Out of bed with assist and ambulate. Monitor hypertension and continue arterial line until hypertension is resolved. Regular diet. Discharge instructions: No driving for 1 week. Okay to shower. If possible, use a baby shampoo or mild shampoo until incision is completely healed. Avoid heat styling until incision completely healed. Try to leave Steri-Strips intact for 1 week. Okay to remove gauze dressing from drain site tomorrow. No strenuous exercise or heavy lifting for 1 week. Okay to ambulate and light activity as tolerated. Continue plavix for 1 month and then ok to discontinue. VS, I&O, 24H, Fishbone Vital Signs/I&O Vital Signs Date Time Temp Pulse Resp B/P (MAP) Pulse Ox O2 Delivery O2 Flow Rate FiO2 09/02/18 09:07 179/77 09/02/18 07:16 76 09/02/18 06:00 1.0 09/02/18 05:00 97 09/02/18 04:00 98.9 21 I&O- Last 24 Hours up to 6 AM 09/02/18 06:00 Intake Total 1605 ml Output Total 2650 ml Balance -1045 ml Laboratory Data 24H LABS Laboratory Tests 2 09/01/18 11:51: Bedside Glucose (Misc Panel) 233H 09/01/18 19:20: Bedside Glucose (Misc Panel) 207H 09/02/18 04:30: Immature Granulocyte % (Auto) 0.3, White Blood Count 8.6, Red Blood Count 3.49L, Hemoglobin 10.2L, Hematocrit 31.6L, Mean Corpuscular Volume 90.5, Mean Corpuscular Hemoglobin 29.2, Mean Corpuscular Hemoglobin Concent 32.3, Red Cell Distribution Width 14.3, Platelet Count 141L, Neutrophils (%) (Auto) 53.5, Lymphocytes (%) (Auto) 37.9, Monocytes (%) (Auto) 6.7H, Eosinophils (%) (Auto) 0.9, Basophils (%) (Auto) 0.7, Neutrophils # (Auto) 4.6, Lymphocytes # (Auto) 3.3, Monocytes # (Auto) 0.6, Eosinophils # (Auto) 0.1, Basophils # (Auto) 0.1, Nucleated Red Blood Cells % (auto) 0.0, Anion Gap 5L, Glomerular Filtration Rate > 60.0, Blood Urea Nitrogen 15#, Creatinine 0.71, Sodium Level 138, Potassium Level 3.7, Chloride Level 100, Carbon Dioxide Level 33H, Calcium Level 8.6L, Aspartate Amino Transf (AST/SGOT) 17, Alanine Aminotransferase (ALT/SGPT) 25, Alkaline Phosphatase 67, Total Bilirubin 0.3, Total Protein 6.5, Albumin 3.2, Albumin/Globulin Ratio 0.97L CBC/BMP Laboratory Tests 09/02/18 04:30 Red Blood Count 3.49 L, Mean Corpuscular Volume 90.5, Mean Corpuscular Hemoglobin 29.2, Mean Corpuscular Hemoglobin Concent 32.3, Red Cell Distribution Width 14.3, Neutrophils (%) (Auto) 53.5, Lymphocytes (%) (Auto) 37.9, Monocytes (%) (Auto) 6.7 H, Eosinophils (%) (Auto) 0.9, Basophils (%) (Auto) 0.7, Neutrophils # (Auto) 4.6, Lymphocytes # (Auto) 3.3, Monocytes # (Auto) 0.6, Eosinophils # (Auto) 0.1, Basophils # (Auto) 0.1, Calcium Level 8.6 L, Aspartate Amino Transf (AST/SGOT) 17, Alanine Aminotransferase (ALT/SGPT) 25, Alkaline Phosphatase 67, Total Bilirubin 0.3, Total Protein 6.5, Albumin 3.2 Microbiology Microbiology 09/01/18 Blood Culture, Received Pending 09/01/18 Blood Culture, Received Pending TWYLA METZ MD Sep 02, 2018 09:22
[2018-09-02] MEDS ORDERED: CLOP75TA2 PO (09:32)
--- NOTE | 2018-09-02 09:45 | DS.PDOC ---
Discharge Summary General Date of Admission Aug 31, 2018 at 09:18 Date of Discharge 09/02/18 Primary Care Physician: A Attending Physician: TWYLA ELMORE MD Discharge Summary PROCEDURES PERFORMED DURING STAY: 09/01/18 Right carotid endarterectomy ADMITTING DIAGNOSES: 1. Right carotid stenosis, asymptomatic 2. Diabetes 3. Hypertension DISCHARGE DIAGNOSES: 1. Right carotid stenosis, asymptomatic 2. Diabetes 3. Hypertension COMPLICATIONS/CHIEF COMPLAINT: Right carotid stenosis. HISTORY OF PRESENT ILLNESS: Ms Contreras is a very pleasant 73 year old patient with right carotid stenosis, asymptomatic. She was admitted for a right carotid endarterectomy after appropriate preoperative clearance. HOSPITAL COURSE: The patient was admitted following her surgery (please see operative report for further details) to the ICU for blood pressure monitoring. She did have some hypertension postop that was managed with hydralazine IV and her home medications. She remained stable from a neurologic standpoint throughout her stay. She was eating without difficulty. Her incision remained intact. She was out of bed and ambulating at baseline. She was still requiring a bit of blood pressure monitoring postop day 1, but she was hemodynamically stable and ready for discharge postop day 2. DISCHARGE MEDICATIONS: Please see below. ALLERGIES: Please see below. PHYSICAL EXAMINATION ON DISCHARGE: VITAL SIGNS: Please see below. GENERAL: NAD HEENT: NC NECK: Incision right neck c/d/i, no hematoma palpable, neck soft. CARDIOVASCULAR EXAMINATION: RRR RESPIRATORY EXAMINATION: CTA ABDOMINAL EXAMINATION: soft NT ND EXTREMITIES: +2 distal pulses SKIN: integrity intact, no rashes NEUROLOGICAL EXAMINATION: CN grossly intact, tongue with mild right deviation, speech clear, gait steady, MAEE, strength/sensation/motor equal all extremities. PSYCHIATRIC EXAMINATION: pleasant and cooperative LABORATORY DATA: Please see below. PROGNOSIS: Good ACTIVITY: Light activity as tolerated DIET: Diabetic DISCHARGE PLAN: d/c today to home. DISPOSITION: Home. DISCHARGE INSTRUCTIONS: 1. No driving for 1 week. 2. Ok to shower. Baby shampoo. No heat styling until incision completely healed. 3. Steri strips should stay intact for 5-7 days. 4. Continue plavix for 30 days. ITEMS TO FOLLOWUP ON ON OUTPATIENT: 1. Follow up with Dr Elmore in 1 week. DISCHARGE CONDITION: Stable. TIME SPENT ON DISCHARGE: Greater than 52 minutes. Vital Signs/I&Os Vital Signs Date Time Temp Pulse Resp B/P (MAP) Pulse Ox O2 Delivery O2 Flow Rate FiO2 09/02/18 09:07 179/77 09/02/18 07:16 76 09/02/18 06:00 1.0 09/02/18 05:00 97 09/02/18 04:00 98.9 21 I&O- Last 24 Hours up to 6 AM 09/02/18 06:00 Intake Total 1605 ml Output Total 2650 ml Balance -1045 ml Laboratory Data Labs 24H Laboratory Tests 2 09/01/18 11:51: Bedside Glucose (Misc Panel) 233H 09/01/18 19:20: Bedside Glucose (Misc Panel) 207H 09/02/18 04:30: Immature Granulocyte % (Auto) 0.3, White Blood Count 8.6, Red Blood Count 3.49L, Hemoglobin 10.2L, Hematocrit 31.6L, Mean Corpuscular Volume 90.5, Mean Corpuscular Hemoglobin 29.2, Mean Corpuscular Hemoglobin Concent 32.3, Red Cell Distribution Width 14.3, Platelet Count 141L, Neutrophils (%) (Auto) 53.5, Lymphocytes (%) (Auto) 37.9, Monocytes (%) (Auto) 6.7H, Eosinophils (%) (Auto) 0.9, Basophils (%) (Auto) 0.7, Neutrophils # (Auto) 4.6, Lymphocytes # (Auto) 3.3, Monocytes # (Auto) 0.6, Eosinophils # (Auto) 0.1, Basophils # (Auto) 0.1, Nucleated Red Blood Cells % (auto) 0.0, Anion Gap 5L, Glomerular Filtration Rate > 60.0, Blood Urea Nitrogen 15#, Creatinine 0.71, Sodium Level 138, Potassium Level 3.7, Chloride Level 100, Carbon Dioxide Level 33H, Calcium Level 8.6L, Aspartate Amino Transf (AST/SGOT) 17, Alanine Aminotransferase (ALT/SGPT) 25, Alkaline Phosphatase 67, Total Bilirubin 0.3, Total Protein 6.5, Albumin 3.2, Albumin/Globulin Ratio 0.97L CBC/BMP Laboratory Tests 09/02/18 04:30 Red Blood Count 3.49 L, Mean Corpuscular Volume 90.5, Mean Corpuscular Hemoglobin 29.2, Mean Corpuscular Hemoglobin Concent 32.3, Red Cell Distribution Width 14.3, Neutrophils (%) (Auto) 53.5, Lymphocytes (%) (Auto) 37.9, Monocytes (%) (Auto) 6.7 H, Eosinophils (%) (Auto) 0.9, Basophils (%) (Auto) 0.7, Neutrophils # (Auto) 4.6, Lymphocytes # (Auto) 3.3, Monocytes # (Auto) 0.6, Eosinophils # (Auto) 0.1, Basophils # (Auto) 0.1, Calcium Level 8.6 L, Aspartate Amino Transf (AST/SGOT) 17, Alanine Aminotransferase (ALT/SGPT) 25, Alkaline Phosphatase 67, Total Bilirubin 0.3, Total Protein 6.5, Albumin 3.2 FSBS Laboratory Tests Test 09/01/18 11:51 09/01/18 19:20 Range/Units Bedside Glucose (Misc Panel) 233 207 83-110 MG/DL Microbiology Microbiology 09/01/18 Blood Culture, Received Pending 09/01/18 Blood Culture, Received Pending Discharge Medications Scheduled Amlodipine Besylate (Amlodipine Besylate) 5 Mg Tablet, 5 MG PO DAILY, (Reported) Buspirone HCl (Buspirone HCl) 5 Mg Tablet, 5 MG PO TID, (Reported) Cholecalciferol (Vitamin D3) (Vitamin D3) 2,000 Unit Tab, 2,000 UNIT PO DAILY, (Reported) Clopidogrel Bisulfate (Clopidogrel) 75 Mg Tablet, 75 MG PO DAILY Duloxetine Hcl (Duloxetine HCl) 20 Mg Capsule.dr, 20 MG PO DAILY, (Reported) AT 1200 Esomeprazole Magnesium (Nexium) 20 Mg Cap, 40 MG PO QHS, (Reported) Estradiol (Estring) 2 Mg Vag.ring, 2 MG PV Q3M, (Reported) Gabapentin (Gabapentin) 600 Mg Tab, 600 MG PO TID, (Reported) Glimepiride (Glimepiride) 4 Mg Tab, 4 MG PO BID, (Reported) Hydrochlorothiazide (Hydrochlorothiazide) 12.5 Mg Capsule, 12.5 MG PO DAILY, (Reported) Lidocaine (Lidoderm) 5% Adh..patch, 1 PATCH TD DAILY, (Reported) APPLIES TO LOWER BACK Meloxicam (Meloxicam) 15 Mg Tablet, 7.5 MG PO DAILY, (Reported) Memantine HCl (Memantine HCl) 10 Mg Tablet, 10 MG PO BID, (Reported) Metoprolol Tartrate (Lopressor) 50 Mg Tab, 50 MG PO DAILY, (Reported) Mirabegron (Myrbetriq) 50 Mg Tab.er.24h, 50 MG PO DAILY, (Reported) Olmesartan/Hydrochlorothiazide (Olmesartan-Hctz 40-25 mg Tab) 1 Each Tablet, 1 TAB PO DAILY, (Reported) Primidone (Primidone) 250 Mg Tablet, 250 MG PO BID, (Reported) Rosuvastatin Calcium (Rosuvastatin Calcium) 20 Mg Tablet, 20 MG PO Q2D, (Reported) IN THE EVENING Sitagliptin Phosphate (Januvia) 100 Mg Tablet, 100 MG PO DAILY, (Reported) AT 1200 Scheduled PRN Polyethylene Glycol 3350 (Polyethylene Glycol 3350) 17 Gm Powd.pack, 17 GM PO DAILY PRN for CONSTIPATION, (Reported) Allergies Coded Allergies: ampicillin (Verified Adverse Reaction, Intermediate, diarrhea, 08/18/18) TAPE (Verified Adverse Reaction, Mild, BLISTERS, 08/18/18) TWYLA ELMORE MD Sep 02, 2018 09:45
[2018-09-02] MEDS ORDERED: CLOPIDOGREL 75 MG TAB PO ONE (10:00)
--- NOTE | 2018-09-02 15:13 | IPNPDOC ---
Text Note Date of Service The patient was seen on 09/02/18. NOTE Subjective: Patient seen and examined at bedside. No new medical complaints this morning. Anxious to go home. Objective: VITAL SIGNS: Please see below. GENERAL: sitting comfortably in chair, NAD HEENT: NC/AT, EOMI, PERRL NECK: right neck bandages in place RESPIRATORY: CTA B/L CARDIOVASCULAR: RRR, S1S2, systolic murmur ABDOMEN: soft NT, ND, +BS EXTREMITIES: no edema NEUROLOGICAL: no gross focal deficits , AAOx3 ASSESSMENT/PLAN: 73f POD #2 right CEA, consulted for management medical co-morbidities #HTN - sbp goal 90-140 - continue home regimen of benicar, hctz, norvasc, and metoprolol - better control today - hydralazine PRN - further direction as per primary team #HLD - continue crestor #DM - diabetic diet - ISS - hold januvia and glimepiride while inpatient #post op pain - as per primary team VS,Dalila, I+O VS, Fishbone, I+O Laboratory Tests 09/02/18 04:30 Red Blood Count 3.49 L, Mean Corpuscular Volume 90.5, Mean Corpuscular Hemoglobin 29.2, Mean Corpuscular Hemoglobin Concent 32.3, Red Cell Distribution Width 14.3, Neutrophils (%) (Auto) 53.5, Lymphocytes (%) (Auto) 37.9, Monocytes (%) (Auto) 6.7 H, Eosinophils (%) (Auto) 0.9, Basophils (%) (Auto) 0.7, Neutrophils # (Auto) 4.6, Lymphocytes # (Auto) 3.3, Monocytes # (Auto) 0.6, Eosinophils # (Auto) 0.1, Basophils # (Auto) 0.1, Calcium Level 8.6 L, Aspartate Amino Transf (AST/SGOT) 17, Alanine Aminotransferase (ALT/SGPT) 25, Alkaline Phosphatase 67, Total Bilirubin 0.3, Total Protein 6.5, Albumin 3.2 Vital Signs Date Time Temp Pulse Resp B/P (MAP) Pulse Ox O2 Delivery O2 Flow Rate FiO2 09/02/18 10:00 66 16 123/56 (78) 94 09/02/18 08:00 99.0 09/02/18 06:00 1.0 I&O- Last 24 Hours up to 6 AM 09/02/18 06:00 Intake Total 1605 ml Output Total 2650 ml Balance -1045 ml CHLOE MONTANO MD Sep 02, 2018 15:13
[2018-09-03] MEDS ORDERED: CLOPIDOGREL 75 MG TAB PO SCH (09:00)
== END 2018-09-02 11:20 | disposition home or self-care (01) | DRG 39 ==
LOC: M OR 09:18 → M ICU 18:07
PROVIDERS: ADMIT Surgery Vascular Surgery; ATTEND Surgery Vascular Surgery
PROC: 03UK0KZ Supplement Right Internal Carotid Artery with Nonautologous Tissue Substitute, Open Approach (ICD-10-PCS; 2018-08-31)
PROC: 03CK0ZZ Extirpation of Matter from Right Internal Carotid Artery, Open Approach (ICD-10-PCS; principal; 2018-08-31 11:30)
DX: I65.21 Occlusion and stenosis of right carotid artery (principal); E11.9 Type 2 diabetes mellitus without complications; I10 Essential (primary) hypertension; E78.5 Hyperlipidemia, unspecified; K21.9 Gastro-esophageal reflux disease without esophagitis; Z87.891 Personal history of nicotine dependence; Z79.84 Long term (current) use of oral hypoglycemic drugs; Z79.899 Other long term (current) drug therapy

== ENCOUNTER → 2018-10-08 | Outpatient (CLI) | payer MEDICARE ==
[~2018-10-08] MED LIST changes: +BUSP5TAB81 PO; +CLOP75TA2 PO; +OLME1TAB15 PO
--- NOTE | 2018-10-08 14:57 | REP ---
REASON: History of carotid arterial stenosis. COMPARISON: 08/03/2018 which showed 50% stenosis in the left internal carotid artery and high grade greater than 70% stenosis in the right internal carotid artery. Today's exam again shows increased echoes along the carotid arterial soto bilaterally and some of it casts an acoustic shadow. RIGHT LEFT CCA Systolic 50.9 cm/s 50.9 cm/s CCA Diastolic 13.4 cm/s 9.3 cm/s ICA Systolic 55.9 cm/s 84.6 cm/s ICA Diastolic 10.9 cm/s 14.7 cm/s ICA/CCA Ratio 1.01 1.66 Spectral waveform analysis shows no evidence of significant carotid arterial spectral broadening. An antegrade flow is seen in both vertebral arteries. IMPRESSION: According to the NASCET consensus criteria there is less than 50% stenosis of the internal carotid artery bilaterally secondary to both calcified and noncalcified atherosclerotic plaque formation. There has been significant improvement on the right since the patient's right sided carotid endarterectomy, the exact date of which I do not have. Electronically Signed by Rj Lane DO 10/08/2018 03:47 P
== END ==
LOC: M RAD 10:13
PROVIDERS: ATTEND Surgery Vascular Surgery
DX: I65.23 Occlusion and stenosis of bilateral carotid arteries (principal)

== ENCOUNTER → 2019-04-16 | Outpatient (CLI) | payer MEDICARE ==
[~2019-04-16] MED LIST changes: -GLIM4TAB PO; +GLIM4TAB5 PO; +MEMA10TA19 PO; -MEMA1TAB2 PO; -OLME1TAB15 PO; +OLME1TAB47 PO
--- NOTE | 2019-04-16 15:55 | REP ---
Duplex carotid sonography: History: Status post right carotid endarterectomy 4-5 months prior. Comparison study October 08, 2018. Comparison is made with prior exam from the August 03, 2018 as well. Sonographic findings: Antegrade flow was observed in both vertebral arteries. Right carotid: There is moderate mixed plaquing in the distal CCA. Some mixed plaquing is seen in the proximal ICA and proximal ECA on two-dimensional scanning. Elevated systolic velocities are observed today on Doppler interrogation of the external carotid artery and internal carotid artery. Velocity chart right carotid: CCA PSV 65 cm/s ICA PSV 237 cm/s ICA EDV 69 cm/s ECA PSV 232 cm/s ICA/CCA ratio elevated 3.8. Impression: 50-69% category narrowing in the right ICA by Doppler velocity criteria. Velocities have increased since the initial post endarterectomy sonography dated October 08, 2018. Left carotid: The left common carotid artery shows moderate mixed plaquing. There is mixed plaquing in the bulb, proximal ICA and proximal ECA on the left side on two-dimensional scanning. Color flow and spectral Doppler interrogation are unremarkable on the left. Velocity chart left carotid: CCA PSV 70 cm/s ICA PSV 99 cm/s ICA EDV 22 cm/s ECA PSV 101 cm/s ICA/CCA ratio 1.4. Impression: Less than 50% category stenosis on the left ICA. Left ICA velocities are essentially unchanged. Electronically Signed by Denilson Harris MD 04/16/2019 05:08 P
== END ==
LOC: M RAD 12:53
PROVIDERS: ATTEND Surgery Vascular Surgery
DX: I65.23 Occlusion and stenosis of bilateral carotid arteries (principal)

== ENCOUNTER → 2019-11-23 | Outpatient (CLI) | payer MEDICARE, BC, MEDICAID ==
[~2019-11-23] MED LIST changes: +AMLO1TAB24 PO; -AMLO5TAB6 PO
--- NOTE | 2019-12-01 11:42 | REP ---
DUPLEX CAROTID SONOGRAPHY HISTORY: Occlusion and stenosis of the carotid arteries. COMPARISON STUDY: 04/16/2019. SONOGRAPHIC FINDINGS: Antegrade flow is observed in both vertebral arteries. RIGHT CAROTID: The right common carotid artery shows diffuse intimal thickening. There is moderate mixed plaquing in the bulb, proximal ICA, and proximal ECA on two- dimensional scanning on the right side. Color flow and spectral Doppler interrogation demonstrate stenotic flow velocity in the internal carotid artery on the left. This flow velocity has increased somewhat since the prior study. VELOCITY CHART RIGHT CAROTID PSV EDV CCA 77 cm/s ICA 328 cm/s 69 cm/s ECA 93 cm/s ICA/CCA ratio 4.3 (elevated) IMPRESSION: 50% to 69% category narrowing in the right internal carotid artery (ICA) by Doppler velocity criteria. Velocity in the internal carotid artery (ICA) as increased somewhat since the prior study. LEFT CAROTID: The left common carotid artery shows diffuse intimal thickening. There is moderate mixed plaquing in the bulb, proximal ICA and proximal ECA on the left side. Color flow and spectral Doppler interrogation demonstrate borderline stenotic flow velocity in the ICA. VELOCITY CHART LEFT CAROTID PSV EDV CCA 77 cm/s ICA 125 cm/s 20 cm/s ECA 104 cm/s ICA/CCA ratio 1.6 IMPRESSION: Less than 50% category narrowing in the left internal carotid artery (ICA) by Doppler velocity criteria. Internal carotid artery (ICA) velocity is slightly higher than on the prior study. Probably near the upper end of the 0-50% range. DD: JUAND
== END ==
LOC: M RAD 13:47
PROVIDERS: ATTEND Surgery Vascular Surgery
DX: I65.23 Occlusion and stenosis of bilateral carotid arteries (principal)

== ENCOUNTER → 2020-06-14 | Outpatient (CLI) | payer MEDICARE, BC, MEDICAID ==
[~2020-06-14] MED LIST changes: -OLME1TAB47 PO; +OLME1TAB53 PO; -PEG1POW PO; +POLY17PO10 PO
--- NOTE | 2020-06-14 13:19 | REP ---
INDICATION: STENOSIS COMPARISON: 11/23/2019 TECHNIQUE: Olivera scale and color Doppler evaluation using linear high frequency transducer Findings: FINDINGS: Two-dimensional olivera scale and color images demonstrate moderate amounts of mixed atheromatous plaquing bilaterally including visible areas of narrowing through the proximal internal carotid arteries (right greater than left). Color Doppler interrogation demonstrates arterial wave patterns with areas of spectral broadening. Normal flow direction is appreciated in the bilateral vertebral arteries. ICA peak systolic velocity: Right 263.8 cm/s; Left 152.7 cm/s ICA diastolic velocity: Right 38.1 cm/s; Left 17.9 cm/s ECA peak systolic velocity: Right 163.5 cm/s; Left 114.0 cm/s CCA peak systolic velocity: Right 73.3 cm/s; Left 70.5 cm/s ICA/CCA ratio: Right 3.6 cm/s; Left 2.9 cm/s IMPRESSION: 1. Narrowing through the left proximal internal carotid artery in the 50-69% range. 2. Narrowing through the right proximal internal carotid artery in the greater than 70% range. <Electronically signed by Ajay Yo > 06/14/20 3425
== END ==
LOC: M RAD 12:22
PROVIDERS: ATTEND Surgery Vascular Surgery
DX: I65.23 Occlusion and stenosis of bilateral carotid arteries (principal)